=== PATIENT | male | born 1965 | race Caucasian/White ===

== ENCOUNTER 2022-01-21 05:34 | Day surgery (SDC) | payer MEDICAID ==
[2022-01-14 14:53] LABS: BASOPHILS # (AUTO) 0.1 X10'3 (0-0.2); EOSINOPHILS # (AUTO) 0.2 X10'3 (0-0.9); EOSINOPHILS % (AUTO) 2.2 % (0-6); LYMPHOCYTES # (AUTO) 2.2 X10'3 (1.1-4.8); LYMPHOCYTES % (AUTO) 27.7 % (21-51); MEAN CORPUSCULAR HEMOGLOBIN 31.8 PG (27.0-31.0); MEAN CORPUSCULAR HGB CONC 34.6 g/dL (33.0-36.5); MONOCYTES # (AUTO) 0.6 X10'3 (0-0.9); MONOCYTES % (AUTO) 7.5 % (2-12); NEUTROPHILS # (AUTO) 4.8 X10'3 (1.8-7.7); NEUTROPHILS % (AUTO) 61.6 % (42-75); PRE OP HEMATOCRIT 42.1 % (42.0-52.0); PRE OP HEMOGLOBIN 14.6 g/dL (14.0-17.9); PRE OP PLATELET COUNT 237 X10'3 (140-440); RED BLOOD COUNT 4.58 X10'6 (4.70-6.10); RED CELL DISTRIBUTION WIDTH 12.5 % (11.5-14.5)
[2022-01-14 15:05] LABS: ALBUMIN 4.3 G/DL (3.4-5.0); ALBUMIN/GLOBULIN RATIO 1.3 (1.1-1.5); ALKALINE PHOSPHATASE 53 IU/L (46-116); BLOOD UREA NITROGEN 9 MG/DL (7-18); BUN/CREATININE RATIO 10.6 (5.4-32.0); CALCIUM 8.8 MG/DL (8.5-10.1); CHLORIDE 100 MMOL/L (99-107); CREATININE 0.85 MG/DL (0.60-1.10); PRE OP ALT 42 U/L (30-65); PRE OP ANION GAP 11 (8-16); PRE OP AST 24 U/L (10-37); PRE OP BILIRUB, TOTAL 0.4 MG/DL (0.0-1.0); PRE OP GLUCOSE 89 MG/DL (70-104); PRE OP POTASSIUM 3.6 MMOL/L (3.4-5.1); PRE OP SODIUM 139 MMOL/L (135-145); TOTAL CARBON DIOXIDE 28.2 MMOL/L (24-32); TOTAL PROTEIN 7.6 G/DL (6.4-8.2); eGFR > 90 ML/MIN
[2022-01-21] VITALS (16 sets, daily range): BP systolic 110–162; BP diastolic 74–98
[~2022-01-21] VITALS: Ht 175.3 cm; Wt 108.3 kg
[~2022-01-21 05:34] MED LIST: AMLO-708 PO; HYDR25TA5 PO; LISI40TA13 PO; OMEP20TA43 PO; ROSU20TA31 PO; ceFAZolin inj. 2,000 MG in dextrose 5%-water 100 ML IV ONE; famotidine 20mg tablet PO ONE; ringers solution, lacted 1,000 ML IV SCH
[2022-01-21] MEDS ORDERED: BUPIVAcaine/PF 2.5mg/ml (0.25%) 10ml vial ONE ×2 (06:33→06:51)
[2022-01-21] MEDS ORDERED: LIDOcaine 1% 30ml preserv. free vial ONE (06:33)
[2022-01-21] MEDS ORDERED: BUPIVACAINE liposomal/PF 13.3 MG/ML vial IM ONE (06:51)
[2022-01-21] MEDS ORDERED: meperidine/PF 25mg/ml syringe IV PRN ×3 (07:45)
[2022-01-21] MEDS ORDERED: proCHLORperazine 10 MG/2 ml inj IV PRN (07:45)
[2022-01-21] MEDS ORDERED: ringers solution, lacted 1,000 ML IV SCH (07:45)
[2022-01-21] MEDS ORDERED: morphine 2 MG/ML inj. syringe IV PRN (07:45)
[2022-01-21] MEDS ORDERED: ondansetron/PF 4mg/2ml inj IV PRN (07:45)
[2022-01-21] MEDS ORDERED: morphine 4 MG/ML inj SYRINge IV PRN (07:45)
[2022-01-21] MEDS ORDERED: fentaNYL/PF 50MCG/1 ML 2ML syringe ONE (07:51)
[2022-01-21] MEDS ORDERED: midazolam 1 mg/ML 2ml injection ONE (07:51)
[2022-01-21] MEDS ORDERED: meperidine/PF 50mg/ml syringe ONE (07:52)
[2022-01-21] MEDS ORDERED: LIDOcaine 2% (20mg/ml) 5ml vial ONE (08:01)
[2022-01-21] MEDS ORDERED: propofol inj 20 ML IV ONE (08:01)
[2022-01-21] MEDS ORDERED: rocuronium 10mg/ml inj IV ONE (08:02)
[2022-01-21] MEDS ORDERED: LIDOcaine 2% 10ml TOPICAL JELLY (Urojet) ONE (08:03)
[2022-01-21] MEDS ORDERED: dexamethasone sod phosphate 4mg/ml inj. ONE (09:12)
[2022-01-21] MEDS ORDERED: ondansetron/PF 4mg/2ml inj ONE (09:12)
[2022-01-21] MEDS ORDERED: oxyCODONE/APAP 5-325mg tablet PO PRN (09:35)
--- NOTE | 2022-01-21 09:42 | NUR ---
Received from OR via [facility], accompanied by Anesthesiologist DR CANTU and report given by Anesthesiolgist. PT IS GROGGY, HAS LMA IN BUT DOES ROUSE TO VERBAL STIMULI AND NODS HEAD APPROPRIATELY TO QUESTION. WILL ROMOVE LMA WHEN PT IS MORE AWAKE. PT PLACED ON BEDSIDE MONITOR, VSS. PT IN SR WITH RATE IN 70'S, RECEIVING 8L O2 TO MASK AND TOLERATING WELL WITH O2 SAT >95%. WILL TITRATE DOWN AT PT TOLERATES. PT HAS 20G PIV TO RT HAND WITIH LR INFUSING ORDERED. PT HAS ABD BINDER ON, DRSG UNDER ARE CDI. PT DENIES PAIN AT THI TIME, WILL CONTINUE TO ASSESS
--- NOTE | 2022-01-21 12:00 | NUR ---
PT HAS MET D/C CRITERIA. IV D/C'D. VSS. DRESSING C/D/I. I HAVE REVIEWED D/C INSTRUCTIONS WITH PATIENT AND HE HAS VERBALIZED UNDERSTANDING OF INSTRUCTIONS. PATIENT D/C HOME WITH ALL BELONGINGS
== END 2022-01-21 11:58 | disposition home or self-care (01) ==
LOC: PAS 05:34
PROVIDERS: ATTEND Surgery
DX: K42.0 Umbilical hernia with obstruction, without gangrene (principal); Z79.899 Other long term (current) drug therapy; Z98.890 Other specified postprocedural states; G89.18 Other acute postprocedural pain; Z88.2 Allergy status to sulfonamides; Z91.018 Allergy to other foods
CPT/HCPCS: 36415; 49653; 64488; 80053; 82948; 85025; 87811; 93005; C9290; J0690; J1100; J2175; J2250; J2405; J2704; J3010; J3490; J7060; J7120; S2900; Z7512; A4215; A4615; A4618; C1781